=== PATIENT | male | born 1975 | race Caucasian/White ===

== ENCOUNTER → 2019-03-18 | Day surgery (SDC) | payer MEDICARE ==
--- NOTE | 2019-03-17 12:58 | Diagnostic Imaging Report ---
EXAMINATION: PA and lateral views of the chest. COMPARISON: None CLINICAL HISTORY: Preoperative study for foot surgery DISCUSSION: Lines/tubes: None. Lungs: Lung volumes are low without consolidation, pleural effusion, or pneumothorax. Pleura: There is no pleural effusion or pneumothorax. Heart and mediastinum: The cardiomediastinal silhouette is normal. Bones and soft tissues: No acute bony abnormalities. IMPRESSION: No acute cardiopulmonary abnormalities. Signed by: Dr. Lemuel Holden M.D. on 03/17/2019 12:54 PM
[~2019-03-18] MED LIST: BUPIVACAINE HCL 0.5% INJ 30 ML VIAL INJ ONE; CEFAZOLIN SOD 1 GM/NS 50ML 50 ML IV ONE; DEXAMETHASONE SOD PHOS INJ 4 MG/ML VIAL ONE; FENTANYL CITRATE/PF 100MCG/2 ML INJ ONE; KETOROLAC TROMETHAMINE 30 MG/ML VIAL ONE; LIDOCAINE HCL 2% LOCAL INJ 5 ML SDV VIAL INJ ONE; MIDAZOLAM HCL 2 MG/2 ML VIAL ONE; ONDANSETRON HCL INJ 2MG/ML 2ML 2 MG/ML VIAL ONE; PROPOFOL IV EMULSION 10 MG/ML 20 ML VIAL ONE; SEVOFLURANE INHAL SOLN 250 ML PEN BTL ONE
--- OUTSIDE RECORDS SUMMARY | 2019-03-18 05:12 | XMS REPORT ---
Author Author [facility] Address Unknown Phone Unavailable Care Team Providers Care Die Stamper Name Role Phone Lokesh NEWBERRY Unavailable Unavailable Problems This patient has no known problems. Allergies, Adverse Reactions, Alerts This patient has no known allergies or adverse reactions. Medications This patient has no known medications. Results Test Description Test Time Test Comments Text Results Atomic Results Result Comments CHEST 2 VIEWS 2019-03-17 12:53:00 [facility] [address] [place] [address] Patient Name: GEORGE SCANLON MR #: [id number] : 1975 Age/Sex: 43/M Req #: [id number] [facility] Physician: Ordered by: KALIE NEWBERRY DPM Report #: [id number] Location: OR Room/Bed: Procedure: [id number] DX/CHEST 2 VIEWS Exam Date: 03/17/19 Exam Time: 1150 REPORT STATUS: Signed EXAMINATION: PA and lateral views of the chest. COMPARISON: None CLINICAL HISTORY: Preoperative study for foot surgery DISCUSSION: Lines/tubes: None. Lungs: Lung volumes are low without consolidation, pleural effusion, or pneumothorax. Pleura: There is no pleural effusion or pneumothorax. Heart and mediastinum: The cardiomediastinal silhouette is normal. Bones and soft tissues: No acute bony abnormalities. IMPRESSION: No acute cardiopulmonary abnormalities. Signed by: Dr. Nettie Garrison M.D. on 03/17/2019 12:54 PM Dictated By: NETTIE GARRISON MD [id number] Transcribed By: TELMA on 03/17/19 1258 COPY TO: KALIE NEWBERRY DPM
--- NOTE | 2019-03-18 08:30 | Operative Report ---
DATE OF PROCEDURE: 03/18/2019 SURGEON: Jean Paul Gao DPM PREOPERATIVE DIAGNOSIS: Soft tissue mass, multiple, right foot. POSTOPERATIVE DIAGNOSIS: Soft tissue mass, multiple, right foot. PLANNED PROCEDURE: 1. Excision of multiple soft tissue masses, right foot. 2. Application of short-leg cast. GRAB SETTER: None. ANESTHESIA: General with a postoperative block consisting of 20 mL of 0.5% Marcaine plain. HEMOSTASIS: Pneumatic ankle tourniquet set at 350 mmHg for a total time of approximately 30 minutes. MATERIALS: 3-0 nylon. ESTIMATED BLOOD LOSS: Less than 10 mL. PATHOLOGY: Soft tissue masses sent for gross specimen. PROCEDURE NOTE: The patient was seen in the preoperative waiting room, where the correct procedure and site was identified. The patient was brought to the operating room, placed on the operating table in a supine position. General anesthesia was initiated. At this time, a well-padded pneumatic tourniquet was placed about the patient's right ankle. The right foot and ankle were then scrubbed, prepped, and draped in the usual aseptic manner. The right foot, ankle, and leg was exsanguinated with gravity and the pneumatic ankle tourniquet was inflated to 250 mmHg for a total time of approximately 30 minutes. Attention was directed to the medial aspect of the patient's right foot, where a large 5 cm x 3 cm multilobulated soft tissue mass is noted, two smaller approximately 1 cm x 1 cm soft tissue masses are noted medially along the medial aspect of the 1st metatarsophalangeal joint and a previous scar with significant scar tissue and overlapping skin is noted under the first metatarsophalangeal joint. A large 8 cm lazy-S incision was made extending from the plantar aspect of the 1st metatarsophalangeal joint along the medial aspect of the mid foot. The incision was carried through the subcutaneous tissue it from deeper underlying structures. All vital neurovascular structures were identified and retracted medial and lateral and all bleeders were cauterized or ligated as deemed necessary. At this time, attention was directed to the medial proximal aspect of the incision, where the largest of the multiple soft tissue masses noted. It is noted to be firm with multiloculated structures. Utilizing blunt dissection, utilizing hemostats and Littauer scissors, the medial, lateral, distal, and proximal borders of the soft tissue mass were identified. It was noted to be adherent to the medial band of the plantar fascia. The soft tissue mass was excised and passed off to the back table along with the section of the medial band of the plantar fascia, which extended distally and the remaining two plantar fibromas on the medial band of the plantar fascia were excised and passed off to the back table. The wounds were then copiously irrigated with sterile saline. The skin on the distal aspect of the previous incision site was remodeled to allow for proper closure. The incision site was reapproximated utilizing simple interrupted sutures with 3-0 nylon. Attention was directed to the plantar aspect of the patient's right foot where another soft tissue mass was noted on the plantar aspect of the central band of the plantar fascia at the mid foot, it is approximately 0.5 cm x 0.5 cm. A small 2 cm lazy-S incision was made directly over the plantar fibroma. Dissection was carried down to the level of the tissue. Utilizing sharp and blunt dissection, the borders of the mass were identified and it was excised along with a portion of the central band of the plantar fascia. The wound was then copiously irrigated with sterile saline and the incision was reapproximated utilizing 3-0 nylon. Next, the incision sites were dressed with Adaptic, 4x4s, Kerlix, followed by the application of a short-leg cast with stockinette cast padding followed by a fiberglass cast rolls. It was applied at a 90 degrees angle that was noted to be adequate padding to the distal aspect as well as proximal aspect of the catheterization site. The patient tolerated the procedure and anesthesia well. The patient was transferred to the postop recovery room with vital signs stable and vascular status intact. The patient was monitored there for a short period time before being sent home with the following written and oral instructions. 1. Keep the dressing clean, dry, intact. 2. The patient is to remain nonweightbearing with crutches to short-leg cast. The patient has history of autism, which is the reason why the cast was placed to begin with. The mother relates that she will be unable to monitor him 24 hours a day and there is a high likelihood of placing weight on the cast. Discussed with mother that the cast will be the best opportunity to prevent plantar wound dehiscence. However, if complications do occur, will treat them as they arise. The patient and patient's mother appeared understanding. The patient has a followup appointment approximately 5 days for a cast check. JULITA Moncada/NATALIE /[id number]
[2019-03-18 08:45] VITALS: BP 114/77
== END | disposition home or self-care (01) ==
LOC: OR 05:00
PROVIDERS: ATTEND Podiatrist Foot & Ankle Surgery
DX: D21.22 Benign neoplasm of connective and other soft tissue of left lower limb, including hip (principal); M72.2 Plantar fascial fibromatosis; M54.9 Dorsalgia, unspecified; R53.1 Weakness; F41.9 Anxiety disorder, unspecified; F84.0 Autistic disorder; Q65.89 Other specified congenital deformities of hip; Z01.810 Encounter for preprocedural cardiovascular examination; Z01.818 Encounter for other preprocedural examination; Z96.641 Presence of right artificial hip joint
CPT/HCPCS: 28060; 71046; 88304; 93005; J0690; J1100; J1885; J2001; J2250; J2405; J2704